=== PATIENT | female | born 1985 | race African-American/Black ===

== ENCOUNTER 2020-06-09 20:03 | Emergency (ER) | payer OTHER ==
[~2020-06-09] VITALS: Ht 160 cm; Wt 82.6 kg
[2020-06-09] MEDS ORDERED: IBUPROFEN 200 MG TAB PO ONE (20:30)
[2020-06-09] MEDS ORDERED: ONDANSETRON HCL 4 MG ORAL DISINTEGRATING TAB PO ONE (20:30)
[2020-06-09] MEDS ORDERED: HYDROCODONE/APAP 5MG-325MG TAB PO ONE (20:30)
[2020-06-09] MEDS ORDERED: CLINDAMYCIN PHOS 600 MG/ 4 ML VIAL IM ONE (20:30)
[2020-06-09] MEDS ORDERED: IBUPROFEN 600 MG TAB ONE (20:35)
[2020-06-09] MEDS ORDERED: HYDROCODONE/APAP 5MG-325MG TAB ONE (20:35)
[2020-06-09] MEDS ORDERED: CLINDAMYCIN PHOS 600 MG/ 4 ML VIAL ONE (20:35)
[2020-06-09] MEDS ORDERED: ONDANSETRON HCL 4 MG ORAL DISINTEGRATING TAB ONE (20:35)
[2020-06-09] MEDS ORDERED: CLEOCIN HCL300 MG PO (20:36)
[2020-06-09] MEDS ORDERED: ZOFRAN4 MG PO (20:36)
[2020-06-09] MEDS ORDERED: TYLENOL # 31 EA PO (20:36)
[2020-06-09] MEDS ORDERED: DOXYCYCLINE HY100 MG PO (20:36)
[2020-06-09] MEDS ORDERED: IBUPROFEN IB200 MG PO (20:36)
== END 2020-06-09 21:15 | disposition home or self-care (01) ==
LOC: FSED 20:31
DX: B02.9 Zoster without complications (principal); L03.116 Cellulitis of left lower limb
CPT/HCPCS: 99283; Q0162